=== PATIENT | male | born 1975 | race Caucasian/White ===

== ENCOUNTER 2024-03-25 22:21 | Emergency (ER) | payer MEDICAID ==
[~2024-03-25] VITALS: Ht 188 cm; Wt 85.9 kg
[2024-03-25 22:43] VITALS: TEMP 99.3
[2024-03-25 23:14] LABS: BASOPHILS # (AUTO) 0.2 X10'3 (0-0.2); EOSINOPHILS # (AUTO) 0.6 X10'3 (0-0.9); EOSINOPHILS % (AUTO) 7.4 % (0-6); HEMATOCRIT 42.3 % (42.0-52.0); HEMOGLOBIN 14.6 g/dl (14.0-17.9); LYMPHOCYTES # (AUTO) 2.2 X10'3 (1.1-4.8); LYMPHOCYTES % (AUTO) 27.7 % (21-51); MEAN CORPUSCULAR HEMOGLOBIN 32.3 PG (27.0-31.0); MEAN CORPUSCULAR HGB CONC 34.6 g/dL (33.0-36.5); MEAN CORPUSCULAR VOLUME 93.4 FL (78-98); MEAN PLATELET VOLUME 7.2 FL (7.4-10.4); MONOCYTES # (AUTO) 0.6 X10'3 (0-0.9); MONOCYTES % (AUTO) 7.8 % (2-12); NEUTROPHILS # (AUTO) 4.3 X10'3 (1.8-7.7); NEUTROPHILS % (AUTO) 55.1 % (42-75); PLATELET COUNT 136 X10'3 (140-440); RED BLOOD COUNT 4.52 X10'6 (4.70-6.10); RED CELL DISTRIBUTION WIDTH 13.2 % (11.5-14.5); WHITE BLOOD COUNT 7.8 X10'3 (4.5-11.0)
[2024-03-25 23:27] LABS: APTT 25 SECONDS (22-32); D-DIMER 0.38 MG/L FEU (0-0.50); INR 1.1 INR; PROTHROMBIN TIME 11.3 SECONDS (9.0-12.0)
[2024-03-25 23:28] LABS: ALANINE AMINOTRANSFERASE 47 U/L (12-78); ALBUMIN 4.1 G/DL (3.4-5.0); ALBUMIN/GLOBULIN RATIO 1.1 (1.1-1.5); ALKALINE PHOSPHATASE 69 IU/L (46-116); ANION GAP 8 (8-16); ASPARTATE AMINO TRANSFERASE 35 U/L (10-37); BILIRUBIN,TOTAL 1.2 MG/DL (0.1-1.0); BLOOD UREA NITROGEN 4 MG/DL (7-18); BUN/CREATININE RATIO 6.9 (10.0-20.0); CALCIUM 9.2 MG/DL (8.5-10.1); CHLORIDE 99 MMOL/L (99-107); CREATININE 0.58 MG/DL (0.60-1.10); GLUCOSE 108 MG/DL (70-104); POTASSIUM 3.8 MMOL/L (3.5-5.1); SODIUM 135 MMOL/L (135-145); TOTAL CARBON DIOXIDE 27.6 MMOL/L (24-32); TOTAL PROTEIN 7.7 G/DL (6.4-8.2); eCRCL 177 ML/MIN; eGFR > 90 ML/MIN
[2024-03-25 23:39] LABS: MAGNESIUM 1.9 MG/DL (1.5-2.4); PRO BRAIN NATRIURETIC PEPTIDE < 30 PG/ML (0-125); THYROID STIMULATING HORMONE 2.84 ulU/ml (0.34-4.50)
[2024-03-26 01:01] LABS: BILIRUBIN,URINE NEGATIVE (Neg); CLARITY,URINE SLIGHTLY CLOUDY (Clear); COLOR,URINE YELLOW (Yellow); GLUCOSE, URINE NEGATIVE (Neg); KETONES,URINE TRACE mg/dl (Neg); LEUKOCYTE ESTERASE ,URINE NEGATIVE (Neg); NITRITES, URINE NEGATIVE (Neg); OCCULT BLOOD,URINE NEGATIVE (Neg); PROTEIN,URINE NEGATIVE (Neg); UROBILINOGEN,URINE 0.2 E.U/dL (0.2-1.0)
[2024-03-26 01:07] LABS: UA COLLECTION TYPE CLN CATCH MIDSTREAM
[2024-03-26 01:08] LABS: SQUAMOUS EPITHELIAL CELL,UR FEW /LPF (FEW)
[2024-03-26 01:09] LABS: RBC,URINE NONE SEEN /HPF (0-2); WBC,URINE 0-4 /HPF (0-4)
[2024-03-26] MEDS: meclizine 12.5mg tablet PO ONE (01:09)
[2024-03-26 01:10] LABS: BACTERIA,URINE FEW /HPF (Neg)
[2024-03-26] MEDS ORDERED: MECL-302 PO (01:18)
[2024-03-26 01:23] VITALS: BP 142/99; PULSE 87; RESP 18; O2SAT 95
== END 2024-03-26 01:25 | disposition home or self-care (01) ==
LOC: ER 22:22
DX: R42 Dizziness and giddiness (principal); R79.1 Abnormal coagulation profile; Z88.6 Allergy status to analgesic agent; Z88.8 Allergy status to other drugs, medicaments and biological substances; Z79.899 Other long term (current) drug therapy
CPT/HCPCS: 36415; 70450; 71045; 80053; 81001; 83735; 83880; 84439; 84443; 84484; 85025; 85379; 85610; 85730; 93005; 99285; J8597